=== PATIENT | female | born 1995 | race Caucasian/White ===

== ENCOUNTER 2017-10-09 22:52 | Emergency (ER) | payer MEDICAID ==
[~2017-10-09] VITALS: Ht 162.6 cm; Wt 48.2 kg
[2017-10-09 22:57] VITALS: BP 101/67; TEMP 98.1
[2017-10-09] MEDS ORDERED: PRENATAL1 TA7 PO (23:17)
[2017-10-09 23:26] LABS: COLLECTION METHOD CLEAN CATCH
[2017-10-09 23:29] LABS: BASO % 0.6 % (0.0-2.0); EOS # 0.1 (0.0-0.7); EOS % 1.2 % (0-4.0); GRAN # 4.1 (1.4-6.5); GRAN % 63.6 % (42.2-75.2); HEMOGLOBIN 12.3 g/dl (12.0-15.0); LYMPH # 1.7 (1.2-3.4); LYMPH % 25.7 % (20.0-51.0); MEAN CELL VOLUME 84 fl (80.0-95.0); MEAN CORPUSCULAR HEMOGLOBIN 30 pg (26.0-32.0); MEAN CORPUSCULAR HGB CONC 35 g/dl (33.0-37.0); MEAN PLATELET VOLUME 8.4 fl (7.4-10.4); MONO # 0.6 (0.1-0.6); MONO % 8.4 % (1.7-9.3); PLATELET COUNT 192 K/mm3 (130-400); RED BLOOD COUNT 4.13 M/mm3 (4.10-5.30)
[2017-10-09 23:30] LABS: HEMATOCRIT 34.8 % (35.0-45.0)
[2017-10-09 23:33] LABS: MUCOUS Present /lpf; PH 6 (5-8); URINE APPEARANCE Clear; URINE BACTERIA None Seen /hpf; URINE BILIRUBIN Negative (NEGATIVE); URINE BLOOD 2+ (NEGATIVE); URINE COLOR Yellow; URINE GLUCOSE Negative (NEGATIVE); URINE KETONE Negative (NEGATIVE); URINE LEUKOCYTE ESTERASE Negative (NEGATIVE); URINE NITRATE Negative (NEGATIVE); URINE PROTEIN(semi-quant) Negative (NEGATIVE); URINE RBC 0-2 /hpf; URINE UROBILINOGEN Negative (NEGATIVE)
[2017-10-10 00:24] VITALS: PULSE 93
== END 2017-10-10 00:24 | disposition home or self-care (01) ==
LOC: COL.ER 22:52
PROVIDERS: Emergency Medicine
DX: O20.0 Threatened abortion (principal); O99.332 Smoking (tobacco) complicating pregnancy, second trimester; F17.210 Nicotine dependence, cigarettes, uncomplicated; Z3A.19 19 weeks gestation of pregnancy

== ENCOUNTER 2020-09-19 07:37 | Emergency (ER) | payer OTHER ==
[~2020-09-19] VITALS: Ht 162.6 cm; Wt 63.6 kg
[~2020-09-19 07:37] MED LIST: PRENATAL1 TA7 PO
[2020-09-19 07:46] VITALS: TEMP 98.3
[2020-09-19] MEDS ORDERED: NORCO 325 MG-51 TAB PO (08:24)
[2020-09-19 08:35] VITALS: BP 107/82; PULSE 78
== END 2020-09-19 08:35 | disposition home or self-care (01) ==
LOC: COL.ER 07:37
DX: S92.354A Nondisplaced fracture of fifth metatarsal bone, right foot, initial encounter for closed fracture (principal); W10.8XXA Fall (on) (from) other stairs and steps, initial encounter

== ENCOUNTER 2022-08-03 13:40 | Outpatient (RCR) | payer OTHER ==
[~2022-08-03 13:40] MED LIST changes: +FLEXERIL 1010 MG/TAB PO; +NORCO 325 MG-51 TAB PO
== END 2022-08-12 | disposition home or self-care (01) ==
LOC: WSOH
DX: M54.42 Lumbago with sciatica, left side (principal); Y99.0 Civilian activity done for income or pay

== ENCOUNTER 2023-07-11 13:30 | Outpatient (RCR) | payer OTHER | END 2023-07-14 | disposition home or self-care (01) | LOC: WSPT | DX: M25.561 Pain in right knee (principal) ==

== ENCOUNTER 2023-09-26 11:43 | Outpatient (RCR) | payer OTHER | END 2023-09-26 13:00 | disposition home or self-care (01) | LOC: WSPT 11:43 | DX: M25.561 Pain in right knee (principal); M25.511 Pain in right shoulder; M25.531 Pain in right wrist ==